=== PATIENT | male | born 2000 | race Caucasian/White ===

== ENCOUNTER 2019-09-03 15:16 | Observation (INO) | payer BC, OTHER ==
[2019-09-03] VITALS (12 sets, daily range): BP systolic 83–129; BP diastolic 42–85
[~2019-09-03] VITALS: Ht 177.8 cm; Wt 55.8 kg
[2019-09-03] MEDS ORDERED: ondansetron 4mg rapidly disintigrating tab PO STA (16:24)
[2019-09-03 17:10] LABS: BASOPHILS % (AUTO) 0.1 % (0-1); EOSINOPHILS % (AUTO) 0 % (0-6); HEMATOCRIT 40.7 % (42.0-52.0); HEMOGLOBIN 13.8 g/dl (14.0-17.9); LYMPHOCYTES % (AUTO) 4.5 % (21-51); MEAN CORPUSCULAR HEMOGLOBIN 28.2 PG (27.0-31.0); MEAN CORPUSCULAR HGB CONC 33.9 g/dL (33.0-36.5); MEAN CORPUSCULAR VOLUME 83.1 FL (78-98); MEAN PLATELET VOLUME 9.4 FL (7.4-10.4); MONOCYTES # (AUTO) 1.3 X10'3 (0-0.9); MONOCYTES % (AUTO) 5.6 % (2-12); NEUTROPHILS # (AUTO) 20.4 X10'3 (1.8-7.7); NEUTROPHILS % (AUTO) 89.8 % (42-75); PLATELET COUNT 223 X10'3 (140-440); RED CELL DISTRIBUTION WIDTH 12.8 % (11.5-14.5); WHITE BLOOD COUNT 22.7 X10'3 (4.5-11.0)
[2019-09-03 17:26] LABS: ALANINE AMINOTRANSFERASE 26 U/L (12-78); ALBUMIN 4.7 G/DL (3.4-5.0); ALBUMIN/GLOBULIN RATIO 1.5 (1.1-1.5); ALKALINE PHOSPHATASE 85 IU/L (20-180); ANION GAP 11 (8-16); ASPARTATE AMINO TRANSFERASE 18 U/L (10-37); BILIRUBIN,TOTAL 0.8 MG/DL (0.1-1.0); BLOOD UREA NITROGEN 11 MG/DL (7-18); BUN/CREATININE RATIO 14.5 (5.4-32.0); CALCIUM 9.8 MG/DL (8.5-10.1); CHLORIDE 105 MMOL/L (99-107); CREATININE 0.76 MG/DL (0.60-1.10); GLUCOSE 153 MG/DL (70-104); LIPASE 53 U/L (73-393); POTASSIUM 4.4 MMOL/L (3.5-5.1); SODIUM 142 MMOL/L (135-145); TOTAL CARBON DIOXIDE 26.3 MMOL/L (24-32); TOTAL PROTEIN 7.9 G/DL (6.4-8.2); eGFR > 90 ML/MIN
[2019-09-03] MEDS ORDERED: ondansetron/PF 4mg/2ml inj IV ONE ×2 (17:35→18:00)
--- NOTE | 2019-09-03 17:38 | NUR ---
PT BROUGHT BACK TO H10, TORI TONY INITIATED 20 GAUGE IV TO RIGHT UPPER ARM, PT THEN BROUGHT TO CT PER ORDERS, RECEIVED VERBAL ORDER TO CHANGE ODT ZOFRAN TO IV ZOFRAN FROM [facility].
--- NOTE | 2019-09-03 17:50 | NUR ---
pt moved from bed Hall10 to bed 07 via [facility]
--- NOTE | 2019-09-03 17:53 | NUR ---
pt ambualtory to bathroom to provide urine sample per orders now.
--- NOTE | 2019-09-03 17:55 | NUR ---
Pt medicated with 4 mg iv zofran per orders, lab is not at bedside to draw blood culture and lactic
[2019-09-03] MEDS ORDERED: morphine 4 MG/ML inj SYRINge IV ONE (18:00)
[2019-09-03] MEDS ORDERED: normal saline 1000ml 1,000 ML IV ONE ×2 (18:15)
[2019-09-03] MEDS ORDERED: piperacillin/tazo 4.5gm/100ml 100 ML IV ONE (18:20)
[2019-09-03 18:39] LABS: CLARITY,URINE CLEAR (Clear); COLOR,URINE YELLOW (Yellow); GLUCOSE, URINE NEGATIVE (Neg); KETONES,URINE >=80 mg/dl (Neg); LEUKOCYTE ESTERASE ,URINE NEGATIVE (Neg); NITRITES, URINE NEGATIVE (Neg); OCCULT BLOOD,URINE NEGATIVE (Neg); PROTEIN,URINE NEGATIVE (Neg)
[2019-09-03 18:48] LABS: UA COLLECTION TYPE CLN CATCH MIDSTREAM
[2019-09-03] MEDS ORDERED: NO HOME MEDS (18:49)
[2019-09-03] MEDS ORDERED: ringers solution, lacted 1,000 ML IV SCH (18:53)
[2019-09-03] MEDS ORDERED: morphine 4 MG/ML inj SYRINge IV PRN (18:55)
[2019-09-03] MEDS ORDERED: labetalol 20mg/4ml (5mg/ml) syringe IV PRN (18:55)
[2019-09-03] MEDS ORDERED: morphine 2 MG/ML inj. syringe IV PRN (18:55)
[2019-09-03] MEDS ORDERED: meperidine/PF 25mg/ml syringe IV PRN ×2 (18:55)
[2019-09-03] MEDS ORDERED: ondansetron/PF 4mg/2ml inj IV PRN ×2 (18:55→20:10)
[2019-09-03] MEDS ORDERED: hydrALAZINE 20mg/ml inj. IV PRN (18:55)
[2019-09-03] MEDS ORDERED: ceFAZolin 1000mg inj ONE (19:07)
[2019-09-03] MEDS ORDERED: BUPIVAcaine/PF 2.5 mg/ml (0.25%) 30ml vial ONE ×2 (19:07→19:34)
[2019-09-03] MEDS ORDERED: fentaNYL/PF 50MCG/1 ML 2ML syringe ONE (19:16)
[2019-09-03] MEDS ORDERED: midazolam 2 mg/2 ml injection ONE (19:17)
[2019-09-03] MEDS ORDERED: rocuronium 10mg/ml inj IV ONE (19:18)
[2019-09-03] MEDS ORDERED: LIDOcaine 2% (20mg/ml) 5ml vial ONE (19:18)
[2019-09-03] MEDS ORDERED: dexamethasone sod phosphate 4mg/ml inj. ONE (19:18)
[2019-09-03] MEDS ORDERED: propofol inj 20 ML IV ONE (19:18)
[2019-09-03] MEDS ORDERED: ketamine 50mg/5ml syringe ONE (19:19)
[2019-09-03] MEDS ORDERED: neostigmine methylsulfate 1 MG/ML 10ml vial ONE (19:20)
[2019-09-03] MEDS ORDERED: ondansetron/PF 4mg/2ml inj ONE (19:20)
[2019-09-03] MEDS ORDERED: sevoflurane 250ml liquid IH ONE (19:20)
[2019-09-03] MEDS ORDERED: ketorolac trometh. 30mg/ml inj. ONE (19:20)
[2019-09-03] MEDS ORDERED: glycopyrrolate 0.2mg/ml inj ONE (19:58)
[2019-09-03] MEDS ORDERED: HYDROcodone/acetaminophen 10/325mg tab PO PRN (20:10)
[2019-09-03] MEDS ORDERED: ketorolac trometh. 30mg/ml inj. IV PRN (20:10)
--- NOTE | 2019-09-03 20:16 | NUR ---
Received from OR via BED, accompanied by Anesthesiologist DR CHOW and report given by Anesthesiolgist. PT DROWSY BUT AWAKENS, NO C/O PAIN AT THIS TIME. 20 GUAGE PIV JOSE G PATENT AND RUNNING LR AT 100 ML/HR.VSS, PAULSON, SKIN PINK AND WARM, BANDAIDS X 3 CDI.
--- NOTE | 2019-09-03 20:56 | NUR ---
PT AWAKE AND ALERT. DRESSINGS CDI, ABD SOFT, VITALS WNL, NO C/O PAIN, 20 GUAGE PIV YAYO PATENT AND RUNNING LR AT 100 ML/HR. SKIN PINK AND WARM. REPORT GIVEN TO AYESHA HAQUE. PT TRANSFERRED VIA BED TO ROOM WITH BELONGINGS, BED DOWN, RAILS UP.
[2019-09-03] MEDS: normal saline 1000ml 1,000 ML IV SCH (21:30)
[2019-09-04] VITALS: BP 133/68
[2019-09-04 00:45] VITALS: BP 107/78
[2019-09-04 04:00] VITALS: BP 109/62
[2019-09-04] MEDS: normal saline 1000ml 1,000 ML IV SCH ×2 (04:27→08:46)
--- NOTE | 2019-09-04 06:25 | NUR ---
Problems reprioritized. Patient report given, questions answered & plan of care reviewed with [facility]. Addendum: 09/04/19 at 0626 by Michael Felder RN Amended: Links added.
--- NOTE | 2019-09-04 06:38 | NUR ---
Patient in room [facility]. I have received report from GARLAND Jade and had the opportunity to ask questions and assume patient care.
[2019-09-04 07:00] VITALS: BP 108/54
--- NOTE | 2019-09-04 10:33 | NUR ---
Pt discharged per nursing. Discharge instructions and medications reviewed. No new prescriptions ordered. Pt instructed to follow up with Dr Live on September 09, and to contact his office if any concerns of infection arise. IV DC'd, cannula intact. Pt to be escorted to front lobby by PCT when dressed.
--- NOTE | 2019-09-04 10:46 | NUR ---
Pt escorted to front lobby by PCT with all belongings
== END 2019-09-04 10:44 | disposition home or self-care (01) ==
LOC: ER 15:17 → SUR 3N 19:26
PROVIDERS: ADMIT Surgery; ATTEND Surgery
DX: K35.80 Unspecified acute appendicitis (principal); R11.2 Nausea with vomiting, unspecified
CPT/HCPCS: 36415; 44970; 74176; 80053; 81003; 83605; 83690; 84145; 85025; 87040; 87081; 96361; 96365; 96366; 96375; 96376; 99284; G0378; J0690; J1100; J1885; J2001; J2250; J2270; J2405; J2543; J2704; J2710; J3010; J3490; J7030; J7120; A4215; A4314; A4618; A7000